=== PATIENT | female | born 1955 | race Caucasian/White ===

== ENCOUNTER → 2017-09-18 | Outpatient (REF) | payer OTHER | LOC: M LAB REF 17:03 | PROVIDERS: ATTEND Internal Medicine Medical Oncology | DX: R91.8 Other nonspecific abnormal finding of lung field (principal) ==

== ENCOUNTER → 2017-09-26 | Outpatient (CLI) | payer BC, OTHER ==
[~2017-09-26] MED LIST: GASTROGRAFIN SOLUTION 30ML (Q9963) As Ordered ONE; ISOVUE-370 76% 100ML VIAL (Q9967) As Ordered ONE
--- NOTE | 2017-09-26 17:18 | REP ---
CT of the abdomen pelvis without and with IV contrast. Bowel contrast is used on both phases. After IV contrast, immediate and delayed imaging are. On a prior chest CT dated 08/29/2017 ([facility]). There is a cavitary lesion in the superior segment of the left lower lobe and a second smaller ground-glass lesion in the superior segment of the left lower lobe. On the study today the visualized lower lung oropeza are unremarkable. The hepatic parenchyma is homogeneous on all phases. There are multiple gallbladder calculi. The gallbladder is otherwise unremarkable. The pancreas and spleen are normal size and. The adrenals are unremarkable. There is no adrenal mass. The kidneys and abdominal aorta are unremarkable. There is no retroperitoneal adenopathy. There is no mesenteric adenopathy. There is no ascites. The bowel is unremarkable. Pelvis: The uterus and adnexa are unremarkable. The bladder is unremarkable. There is no ascites or adenopathy. There are no lytic, blastic or destructive skeletal changes. Impression: Essentially negative CT study of the abdomen pelvis. There is no adrenal mass. No evidence of hepatic metastases. No adenopathy or ascites. Signed by Tenzin Dee MD 09/26/2017 05:10 P
== END ==
LOC: M RAD 14:30
PROVIDERS: ATTEND Internal Medicine Medical Oncology
DX: R91.8 Other nonspecific abnormal finding of lung field (principal)
CPT/HCPCS: 74178; Q9963; Q9967

== ENCOUNTER → 2017-09-30 | Outpatient (CLI) | payer BC, OTHER | LOC: M PLARAD 12:16 | PROVIDERS: ATTEND Internal Medicine Medical Oncology | DX: C34.90 Malignant neoplasm of unspecified part of unspecified bronchus or lung (principal); Z53.9 Procedure and treatment not carried out, unspecified reason ==

== ENCOUNTER → 2017-10-06 | Outpatient (CLI) | payer BC, OTHER ==
[~2017-10-06] MED LIST changes: -GASTROGRAFIN SOLUTION 30ML (Q9963) As Ordered ONE; -ISOVUE-370 76% 100ML VIAL (Q9967) As Ordered ONE; +LIDOCAINE 1% MDV 20ML VIAL As Ordered ONE
--- NOTE | 2017-10-06 15:01 | REP ---
POST BIOPSY CHEST: Post biopsy chest radiograph is performed following CT guided biopsy of a left lung mass. No pneumothorax is seen. Heart is normal in size. Mediastinal silhouette is unremarkable. IMPRESSION: No pneumothorax status post left lung biopsy. Signed by Tenzin Zarate MD 10/06/2017 05:58 P
--- NOTE | 2017-10-06 18:00 | REP ---
CT GUIDED LEFT LOWER LOBE LUNG BIOPSY The procedure was performed under the direct supervision of Dr. Zarate. The patient has a history of a 1.6 cm spiculated cavitary lesion in the posterior aspect of the superior segment of the left lower lobe seen on a previous CT scan from [facility] performed on 08/29/2017. The risks and benefits of the procedure were explained to the patient and informed consent was obtained. The left lower lobe lung nodule was localized using CT guidance. The skin was prepped and draped in a sterile fashion. 1% Xylocaine was used as a local anesthetic. Using CT guidance a 19/20 gauge coaxial needle biopsy system was inserted and advanced into the nodule. Four core biopsy samples were obtained and sent to lab. The patient tolerated the procedure well and there were no immediate complications. After the appropriate amount of monitored convalescence the patient was discharged from the department. Reviewed by CEM Heath 10/06/2017 05:24 PSigned by Tenzin Zarate MD 10/06/2017 05:50 P
== END ==
LOC: M RADPRO 10:53
PROVIDERS: ATTEND Internal Medicine Medical Oncology
DX: C34.90 Malignant neoplasm of unspecified part of unspecified bronchus or lung (principal); F17.210 Nicotine dependence, cigarettes, uncomplicated; G43.909 Migraine, unspecified, not intractable, without status migrainosus; K50.90 Crohn's disease, unspecified, without complications; Z88.0 Allergy status to penicillin; Z88.8 Allergy status to other drugs, medicaments and biological substances; Z79.82 Long term (current) use of aspirin; Z79.899 Other long term (current) drug therapy; Z79.4 Long term (current) use of insulin

== ENCOUNTER → 2017-10-07 | Outpatient (CLI) | payer BC, OTHER ==
--- NOTE | 2017-10-08 17:58 | REP ---
PET/CT: History: Cavitary lung nodule left upper lobe. The patient status post needle biopsy October 06, 2017. 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 Comparisons: Comparison chest CT [facility] dated August 29, 2017. Comparison CT abdomen and pelvis September 26, 2017. TECHNIQUE: 1 hour 5 minutes following the intravenous injection of a 9.5 mCi dose of F-18 FDG, three-dimensional PET scintigraphy is acquired from the skull base to the proximal thighs. Triplanar noncontrast CT scanning is acquired through the same anatomic range for attenuation correction, and image registration with scan parameters optimized to minimize radiation exposure to the patient. PET scintigraphy and CT datasets were fused and displayed on a workstation with multiplanar and projection display capability. PET/CT Findings: the known cavitary lesion in the left upper lobe shows hypermetabolic uptake, maximum standard uptake value is 3.4 within the nodule. The 5 mm ill-defined less than solid nodule adjacent to this in the upper lobe shows no discernible FDG accumulation, maximum standard uptake value is 0.5. There is no abnormal mediastinal or hilar neil uptake. No other abnormal hypermetabolic uptake is seen within the thorax. Head and neck soft tissues are unremarkable. In the abdomen and pelvis there is normal hepatic, splenic, gastrointestinal and genitourinary FDG accumulation. No abnormal adrenal uptake is seen. Gallstones are noted. Impression: The cavitary malignant nodule in the left upper lobe posteriorly shows mildly hypermetabolic uptake. No other abnormal hypermetabolic focus is seen. Signed by Shabbir Maxwell MD 10/09/2017 08:03 A
== END ==
LOC: M PLARAD 09:52
PROVIDERS: ATTEND Internal Medicine Medical Oncology
DX: R91.1 Solitary pulmonary nodule (principal)
CPT/HCPCS: 78815; A9552